=== PATIENT | female | born 1975 | race Caucasian/White ===

== ENCOUNTER 2017-06-22 18:14 | Emergency (ER) | payer BC ==
[2017-06-22 18:37] VITALS: BP 121/84
--- NOTE | 2017-06-22 19:55 | RAD ---
HISTORY: Left hand injury COMPARISONS: None VIEWS: 4, Frontal, lateral, and oblique views of the left hand FINDINGS: BONE DENSITY: Normal. BONES: There is no displaced fracture. JOINTS: There is no arthropathy. ALIGNMENT: There is no dislocation. SOFT TISSUES: Unremarkable. OTHER FINDINGS: None. IMPRESSION: NO ACUTE OSSEOUS INJURY. IF SYMPTOMS PERSIST, RECOMMEND REPEAT IMAGING.
--- NOTE | 2017-06-22 20:04 | ED ---
Upper Extremity Pain - HPI Summary HPI Summary: 41F presents with left hand injury. She hit a piece of fire wood against her left index finger knuckle. The area has swelled. She has been placing ice on the area. She has a history of raynaud. She denies any numbness or tingling. is right handed. denies any previous injury. did not take anything for pain. - History of Current Complaint Chief Complaint: EDExtremityUpper Stated Complaint: LT HAND INJURY Time Seen by Provider: 06/22/17 19:02 - Allergies/Home Medications Allergies/Adverse Reactions: Allergies Allergy/AdvReac Type Severity Reaction Status Date / Time No Known Allergies Allergy Verified 06/22/17 18:36 PMH/Surg Hx/FS Hx/Imm Hx Endocrine/Hematology History: Denies: Hx Diabetes Cardiovascular History: Denies: Hx Hypertension, Hx Pacemaker/ICD Respiratory History: Denies: Hx Asthma History: Denies: Hx Dialysis, Hx Renal Disease Sensory History: Denies: Hx Hearing Aid Psychiatric History: Denies: Hx Panic Disorder - Cancer History Cancer Type, 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 UTERINE FIBROID EMBOLIZATION Infectious Disease History: No Infectious Disease History: Denies: Traveled Outside the [place] in Last 30 Days - Family History Known Family History: Positive: Hypertension - Social History Alcohol Use: Weekly Alcohol Amount: "social" once a week or two Substance Use Type: Reports: None Smoking Status (MU): Former Smoker Have You Smoked in the Last Year: No Review of Systems Negative: Fever Negative: Chest Pain Negative: Shortness Of Breath Positive: Myalgia - left index finger All Other Systems Reviewed And Are Negative: Yes Physical Exam Triage Information Reviewed: Yes Vital Signs On Initial Exam: Initial Vitals Temp Pulse Resp BP Pulse Ox 97.5 F 68 20 121/84 100 06/22/17 18:34 06/22/17 18:34 06/22/17 18:34 06/22/17 18:34 06/22/17 18:34 Vital Signs Reviewed: Yes Appearance: Positive: Well-Appearing Skin: Positive: Warm, Dry Head/Face: Positive: Normal Head/Face Inspection Eyes: Positive: Normal, Conjunctiva Clear Respiratory/Lung Sounds: Positive: Clear to Auscultation, Breath Sounds Present Cardiovascular: Positive: Normal, RRR Musculoskeletal: Positive: Limited @ - left index finger, Edema Left - index finger at MCP, Other - good pulses, capillary refill<2 secs, neg snuff box tenderness Psychiatric: Positive: Normal Diagnostics - Vital Signs Vital Signs Temp Pulse Resp BP Pulse Ox 06/22/17 18:34 97.5 F 68 20 121/84 100 - Laboratory Lab Statement: Any lab studies that have been ordered have been reviewed, and results considered in the medical decision making process. - Radiology hand Xray Interpretation: No Acute Changes Radiology Interpretation Completed By: Radiologist Course/Dx - Course Course Of Treatment: 41F presents with left hand injury. She hit a piece of fire wood against her left index finger knuckle. The area has swelled. She has been placing ice on the area. She has a history of raynaud. She denies any numbness or tingling. is right handed. denies any previous injury. did not take anything for pain. left index finger MCP swelling. neg snuff box tenderness. xray normal. will treat with RICE. patient understands and agrees with plan. - Diagnoses Differential Diagnosis/HQI/PQRI: Positive: Fracture (Closed), Strain, Sprain Provider Diagnoses: Injury of left hand Discharge - Discharge Plan Condition: Good Disposition: HOME Patient Education Materials: Contusion in Adults (ED) Referrals: Kami Narayanan MD [Primary Care Provider] - Additional Instructions: Adyin tape area Take Tylenol or ibuprofen every 6 hours as needed for pain Apply ice 20 mins on 20 mins off, rest, elevate Follow up with primary care physician if no improvement within 7 days Return to ED if develop any new or worsening symptoms
== END 2017-06-22 20:13 | disposition home or self-care (01) ==
LOC: ED 18:14
DX: S69.92XA Unspecified injury of left wrist, hand and finger(s), initial encounter (principal); W22.8XXA Striking against or struck by other objects, initial encounter; Y93.9 Activity, unspecified; Y92.9 Unspecified place or not applicable; Z87.891 Personal history of nicotine dependence
CPT/HCPCS: 99281